=== PATIENT | male | born 1990 | race Caucasian/White ===

== ENCOUNTER 2022-06-30 00:25 | Emergency (ER) | payer SELFPAY ==
[2022-06-30 00:33] VITALS: BP 126/83; PULSE 113; RESP 16; TEMP 36.7; O2SAT 98; BMI 24.7
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
--- NOTE | 2022-06-30 02:16 | PC.NURSE ---
wound cleaned. Dr Varghese closed wound with dermabond.
[2022-06-30 02:17] VITALS: PULSE 96; RESP 20; O2SAT 95
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
== END 2022-06-30 02:12 | disposition home or self-care (01) ==
PROVIDERS: Emergency Provider Emergency Medicine
DX: S60.221A Contusion of right hand, initial encounter (principal); S61.411A Laceration without foreign body of right hand, initial encounter; W20.8XXA Other cause of strike by thrown, projected or falling object, initial encounter
CPT/HCPCS: 12001; 73130; 99283